=== PATIENT | male | born 1955 | race Caucasian/White ===

== ENCOUNTER 2018-08-03 20:04 | Emergency (ER) | payer OTHER ==
[~2018-08-03] VITALS: Ht 175.3 cm; Wt 61.2 kg
[2018-08-03 20:06] VITALS: BP 134/70
[2018-08-03] MEDS: HYDROcodone/APAP 10/325 MG 1 TAB TAB PO ONE (20:38)
[2018-08-03 21:45] VITALS: BP 128/74
== END 2018-08-03 21:45 | disposition home or self-care (01) ==
LOC: MED 20:04
DX: M62.838 Other muscle spasm (principal); M25.512 Pain in left shoulder; R11.10 Vomiting, unspecified; E11.9 Type 2 diabetes mellitus without complications; I10 Essential (primary) hypertension
CPT/HCPCS: 70490; 93005; 99284